=== PATIENT | male | born 1965 | race Caucasian/White ===

== ENCOUNTER 2024-02-21 10:42 | Emergency (ER) | payer MEDICAID ==
[~2024-02-21] VITALS: Ht 167.6 cm; Wt 103.0 kg
[2024-02-21] MEDS: TRAMADOL HCL 50 MG TABLET PO ONE (12:53)
[2024-02-21] MEDS ORDERED: TRAMADOL HCL 50 MG TABLET ONE (12:53)
[2024-02-21] MEDS ORDERED: TRAM50TA2 PO (13:46)
[2024-02-21 14:15] VITALS: BP 130/81; TEMP 98.4; O2SAT 98
== END 2024-02-21 14:15 | disposition home or self-care (01) ==
LOC: ER 11:01
DX: M17.0 Bilateral primary osteoarthritis of knee (principal)
CPT/HCPCS: 73564-TC